=== PATIENT | female | born 2000 | race Caucasian/White ===

== ENCOUNTER 2018-06-13 00:28 | Emergency (ER) | payer OTHER ==
[~2018-06-13] VITALS: Ht 162.6 cm; Wt 54.4 kg
[2018-06-13] MEDS ORDERED: LACTATED RINGERS 1,000 ML IV ONE ×3 (03:50→04:32)
[2018-06-13] MEDS ORDERED: ONDANSETRON 4 MG/2 ML (SDV) Z0FRAN ONE (03:51)
[2018-06-13 03:58] VITALS: BP_SYST 107; BP_SYST 108; BP_SYST 112; BP_DIAS 64; BP_DIAS 66
[2018-06-13 03:59] LABS: BASOPHILS % (AUTO) 0 % (0-10); EOSINOPHILS # (AUTO) 0.2 10^3/uL (0.0-0.3); EOSINOPHILS % (AUTO) 2 % (0-10); HEMATOCRIT 42 % (35-52); HEMOGLOBIN 14.7 G/DL (11.5-16.0); LYMPHOCYTES % (AUTO) 35 % (12-44); MEAN CORPUSCULAR HEMOGLOBIN 30 PG (25-34); MEAN CORPUSCULAR HGB CONC 35 G/DL (32-36); MEAN CORPUSCULAR VOLUME 86 FL (80-99); MEAN PLATELET VOLUME 9.9 FL (7.4-10.4); MONOCYTES # (AUTO) 0.5 X 10^3 (0.0-1.0); MONOCYTES % (AUTO) 6 % (0-12); NEUTROPHILS # (AUTO) 4.8 X 10^3 (1.8-7.8); NEUTROPHILS % (AUTO) 56 % (42-75); PLATELET COUNT 284 10^3/uL (130-400); RED BLOOD COUNT 4.88 10^6/uL (4.35-5.85); RED CELL DISTRIBUTION WIDTH 12.7 % (10.0-14.5); WHITE BLOOD COUNT 8.5 10^3/uL (4.3-11.0)
[2018-06-13] MEDS ORDERED: ONDANSETRON 4 MG/2 ML (SDV) Z0FRAN IVP ONE (04:00)
[2018-06-13 04:18] LABS: ALANINE AMINOTRANSFERASE 21 U/L (0-55); ALBUMIN 4.6 GM/DL (3.2-4.5); ALKALINE PHOSPHATASE 88 U/L (40-136); AMYLASE 50 U/L (25-125); BILIRUBIN,TOTAL 1.4 MG/DL (0.1-1.0); BUN/CREATININE RATIO 9; CALCIUM 9.5 MG/DL (8.5-10.1); CARBON DIOXIDE 22 MMOL/L (21-32); CHLORIDE 106 MMOL/L (98-107); CREATININE SERUM 0.74 MG/DL (0.60-1.30); GFR ESTIMATED > 60; GLUCOSE 91 MG/DL (70-105); LIPASE 30 U/L (8-78); POTASSIUM 3.7 MMOL/L (3.6-5.0); SODIUM 140 MMOL/L (135-145); TOTAL PROTEIN 7.5 GM/DL (6.4-8.2)
[2018-06-13 04:23] LABS: BILIRUBIN,URINE NEGATIVE (NEGATIVE); CLARITY,URINE SLIGHTLY CLOUDY; COLOR,URINE YELLOW; GLUCOSE, URINE (UA) NEGATIVE (NEGATIVE); KETONES,URINE 2+ (NEGATIVE); LEUKOCYTE ESTERASE ,URINE NEGATIVE (NEGATIVE); NITRITE,URINE NEGATIVE (NEGATIVE); PH,URINE 7 (5-9); PROTEIN,URINE NEGATIVE (NEGATIVE); UROBILINOGEN,URINE NORMAL (NORMAL)
[2018-06-13] MEDS ORDERED: KETOROLAC 30 MG/ML VIAL IVP STA (04:32)
[2018-06-13 04:37] LABS: AMORPHOUS SEDIMENT,UR MOD AMOR PHOSPHATE /LPF; BACTERIA,URINE TRACE /HPF; SQUAMOUS EPITHELIAL CELL,UR 0-2 /HPF
[2018-06-13] MEDS ORDERED: CYCL10TA9 PO (05:38)
[2018-06-13] MEDS ORDERED: ONDN4T PO (05:38)
[2018-06-13] MEDS ORDERED: KETO10TA PO (05:38)
--- NOTE | 2018-06-13 05:38 | ED Abdominal Pain ---
General Chief Complaint: Abdominal/GI Problems Stated Complaint: N,D Nursing Triage Note: PT VEBALIZED CONSTANT ABDOMINAL AND R FLANK PAIN THAT BEGAN THIS AM WITH NAUSEA. PT VERBALIZED TWO LOOSE STOOLS EARLIER THIS AFTERNOON. Sepsis Screen: No Definite Risk Source of Information: Patient History of Present Illness Date Seen by Provider: Jun 13, 2018 Time Seen by Provider: 03:45 Initial Comments PT ARRIVES VIA POV FROM HOME C/O RLQ PAIN RADIATING TO RIGHT FLANK SINCE 1000 AM TODAY PAIN IS CONSTANT BUT WAXES AND WANES IN INTENSITY. RATES PAIN 8/10 PAIN IS WORSE WITH BENDING AT WAIST, STANDING UP OR SITTING DOWN + NAUSEA, NO VOMITING + DIARRHEA X 2 NO FEVER/SWEATS/CHILLS NO PROBLEMS URINATING NO HISTORY OF SIMILAR LMP 05/26/18--1 WEEK LATE, NO CONTROL PCP: NONE--JUST MOVED HERE FROM [place] Allergies and Home Medications Allergies Coded Allergies: Penicillins (Verified Allergy, Unknown, 06/13/18) Home Medications Cyclobenzaprine HCl 10 Mg Tablet, 10 MG PO Q8H Prescribed by: ARON LANZA on 06/13/18 0538 Ketorolac Tromethamine 10 Mg Tablet, 10 MG PO Q6H Prescribed by: ARON LANZA on 06/13/18 0538 Ondansetron HCl 4 Mg Tab, 4 MG PO Q4H Prescribed by: ARON LANZA on 06/13/18 0538 Patient Home Medication List Home Medication List Reviewed: Yes Review of Systems Review of Systems Constitutional: no symptoms reported Respiratory: No Symptoms Reported Cardiovascular: No Symptoms Reported Gastrointestinal: See HPI, Abdominal Pain, Diarrhea, Nausea; Denies Vomiting Genitourinary: See HPI, Flank Pain Musculoskeletal: see HPI, back pain Skin: no symptoms reported Psychiatric/Neurological: No Symptoms Reported Endocrine: No Symptoms Reported Past Mzunjva-Atmgtj-Ocbwbf Hx Patient Social History Alcohol Use: Denies Use Recreational Drug Use: No Smoking Status: Never a Smoker Recent Foreign Travel: No Contact w/Someone Who Travel: No Recent Infectious Disease Expo: No Recent Hopitalizations: No Physical Abuse: No Sexual Abuse: No Mistreated: No Fear: No Immunizations Up To Date PED Vaccines UTD: Yes Seasonal Allergies Seasonal Allergies: No Past Medical History Surgeries: Yes (MULTIPLE SETS OF BMT'S) Ear Surgery Respiratory: No Cardiac: No Neurological: No : No Last Menstrual Period: May 26, 2018 Reproductive Disorders: No Female Reproductive Disorders: Denies Genitourinary: No Gastrointestinal: No Musculoskeletal: No Endocrine: No HEENT: Yes (SEVERAL SETS OF BMT'S ) Chronic Ear Infection Cancer: No Psychosocial: No Integumentary: No Blood Disorders: No Physical Exam Vital Signs Vital Signs - First Documented 06/13/18 03:33 Temp 98.1 Pulse 85 Resp 20 B/P (MAP) 115/91 (99) Pulse Ox 100 O2 Delivery Room Air Capillary Refill : Less Than 3 Seconds Height/Weight/BMI Height: 5'4.00" Weight: 120lbs. oz. 54.052010qz; BMI Method:Stated General Appearance: WD/WN, no apparent distress, other (WALKS UPRIGHT ; SMILING ) Respiratory: normal breath sounds, no respiratory distress, no accessory muscle use Cardiovascular: regular rate, rhythm, no murmur Gastrointestinal: normal bowel sounds, soft, no organomegaly, no pulsatile mass ; No distended, No guarding, No rebound; tenderness (DIFFUSE RIGHT SIDED ABDOMINAL TENDERNESS, WITH MILD RIGHT FLANK TENDERNESS. MOST TENDER IN RLQ); No hernia, No mass Extremities: normal inspection Back: CVA tenderness (R) Neurologic/Psychiatric: brazer repair and salvage II-XII nml as tested, no motor/sensory deficits, alert, normal mood/affect, oriented x 3 Skin: normal color, warm/dry; No rash Progress/Results/Core Measures Results/Orders Lab Results Laboratory Tests Test 06/13/18 03:43 06/13/18 04:17 Range/Units White Blood Count 8.5 4.3-11.0 10^3/uL Red Blood Count 4.88 4.35-5.85 10^6/uL Hemoglobin 14.7 11.5-16.0 G/DL Hematocrit 42 35-52 % Mean Corpuscular Volume 86 80-99 FL Mean Corpuscular Hemoglobin 30 25-34 PG Mean Corpuscular Hemoglobin Concent 35 32-36 G/DL Red Cell Distribution Width 12.7 10.0-14.5 % Platelet Count 284 130-400 10^3/uL Mean Platelet Volume 9.9 7.4-10.4 FL Neutrophils (%) (Auto) 56 42-75 % Lymphocytes (%) (Auto) 35 12-44 % Monocytes (%) (Auto) 6 0-12 % Eosinophils (%) (Auto) 2 0-10 % Basophils (%) (Auto) 0 0-10 % Neutrophils # (Auto) 4.8 1.8-7.8 X 10^3 Lymphocytes # (Auto) 3.0 1.0-4.0 X 10^3 Monocytes # (Auto) 0.5 0.0-1.0 X 10^3 Eosinophils # (Auto) 0.2 0.0-0.3 10^3/uL Basophils # (Auto) 0.0 0.0-0.1 10^3/uL Sodium Level 140 135-145 MMOL/L Potassium Level 3.7 3.6-5.0 MMOL/L Chloride Level 106 98-107 MMOL/L Carbon Dioxide Level 22 21-32 MMOL/L Anion Gap 12 5-14 MMOL/L Blood Urea Nitrogen 7 7-18 MG/DL Creatinine 0.74 0.60-1.30 MG/DL Estimat Glomerular Filtration Rate > 60 BUN/Creatinine Ratio 9 Glucose Level 91 70-105 MG/DL Calcium Level 9.5 8.5-10.1 MG/DL Corrected Calcium 8.5-10.1 MG/DL Total Bilirubin 1.4 H 0.1-1.0 MG/DL Aspartate Amino Transf (AST/SGOT) 21 5-34 U/L Alanine Aminotransferase (ALT/SGPT) 21 0-55 U/L Alkaline Phosphatase 88 40-136 U/L Total Protein 7.5 6.4-8.2 GM/DL Albumin 4.6 H 3.2-4.5 GM/DL Amylase Level 50 25-125 U/L Lipase 30 8-78 U/L Serum Test, Qualitative NEGATIVE NEGATIVE Urine Color YELLOW Urine Clarity SLIGHTLY CLOUDY Urine pH 7 5-9 Urine Specific [place] 1.015 L 1.016-1.022 Urine Protein NEGATIVE NEGATIVE Urine Glucose (UA) NEGATIVE NEGATIVE Urine Ketones 2+ H NEGATIVE Urine Nitrite NEGATIVE NEGATIVE Urine Bilirubin NEGATIVE NEGATIVE Urine Urobilinogen NORMAL NORMAL MG/DL Urine Leukocyte Esterase NEGATIVE NEGATIVE Urine RBC (Auto) NEGATIVE NEGATIVE Urine RBC NONE /HPF Urine WBC NONE /HPF Urine Squamous Epithelial Cells 0-2 /HPF Urine Crystals PRESENT H /LPF Urine Amorphous Sediment MOD STIVEN PHOSPHATE H /LPF Urine Bacteria TRACE /HPF Urine Casts NONE /LPF Urine Mucus MODERATE H /LPF Urine Culture Indicated NO My Orders Orders - POOL,ARON K DO Saline Lock/Iv-Start (06/13/18 03:42) Urine Bedside (06/13/18 03:42) Orthostatic Vital Signs (Adult (06/13/18 03:42) Amylase (06/13/18 03:42) Cbc With Automated Diff (06/13/18 03:42) Comprehensive Metabolic Panel (06/13/18 03:42) Lipase (06/13/18 03:42) Ua Culture If Indicated (06/13/18 03:42) Saline Lock/Iv-Start (06/13/18 03:50) Lactated Ringers (Lr 1000 Ml Iv Solution (06/13/18 03:50) Ondansetron Injection (Zofran Injectio (06/13/18 04:00) Ondansetron Injection (Zofran Injectio (06/13/18 03:51) Lactated Ringers (Lr 1000 Ml Iv Solution (06/13/18 03:51) Hcg,Qualitative Serum (06/13/18 04:23) Ct Abd/Pelvis Wo(Kidney Stone) (06/13/18 04:32) Acute Abd Series (06/13/18 04:32) Saline Lock/Iv-Start (06/13/18 04:32) Lactated Ringers (Lr 1000 Ml Iv Solution (06/13/18 04:32) Ketorolac Injection (Toradol Injection) (06/13/18 04:32) Medications Given in ED Current Medications Medications Dose Ordered Sig/Lisa Route Start Time Stop Time Status Last Admin Dose Admin Lactated Ringer's 1,000 ml @ 0 mls/hr Q0M ONCE IV 06/13/18 03:50 06/13/18 03:53 DC 06/13/18 03:59 1,000 MLS/HR Lactated Ringer's 1,000 ml @ 0 mls/hr Q0M ONCE IV 06/13/18 04:32 06/13/18 04:34 DC 06/13/18 05:06 1,000 MLS/HR Ondansetron HCl 4 mg ONCE ONCE IVP 06/13/18 04:00 06/13/18 04:01 DC 06/13/18 03:58 4 MG Vital Signs/I&O 06/13/18 06/13/18 06/13/18 03:33 03:58 06:03 Temp 98.1 98.2 Pulse 85 71 75 61 81 Resp 20 18 B/P (MAP) 115/91 (99) 112/64 (80) 98/78 (85) 107/66 (80) 108/64 (79) Pulse Ox 100 100 O2 Delivery Room Air Room Air Blood Pressure Mean: 79 Urine -Bedside: Negative Progress Progress Note : Progress Note SYMPTOMS RESOLVED AT DISMISSAL Diagnostic Imaging Comments ACUTE ABDOMEN XRAYS--ITALO CUTE PROCESS, PENDING RADIOLOGIST REVIEW CT ABDOMEN/PELVIS--3.1 CM RIGHT ADNEXAL FLUID COLLECTION C/W HEMORRHAGIC OVARIAN CYST. PER [facility] VIA FAX @ [phone] Reviewed: Reviewed by Me Departure Impression Primary Impression: Hemorrhagic cyst of right ovary Disposition: HOME, SELF-CARE Condition: Improved Departure-Patient Inst. Referrals: NO,LOCAL PHYSICIAN (PCP/Family) Primary Care Physician Patient Instructions: Ovarian Cyst (DC) Add. Discharge Instructions: HOME, REST LOTS OF CLEAR LIQUIDS--WATER, BROTH, JELLO, GATORADE FOLLOW UP WITH DR OF CHOICE IN 3-4 DAYS FOR FURTHER CARE RETURN TO ER IF WORSE All discharge instructions reviewed with patient and/or family. Voiced understanding. Scripts Ketorolac Tromethamine (Ketorolac Tromethamine) 10 Mg Tablet 10 MG PO Q6H for Pain, #15 TAB Prov: ARON LANZA DO 06/13/18 Cyclobenzaprine HCl (Cyclobenzaprine HCl) 10 Mg Tablet 10 MG PO Q8H, #15 TAB Prov: ARON LANZA DO 06/13/18 Ondansetron HCl (Zofran) 4 Mg Tab 4 MG PO Q4H for Nausea/Vomiting, #10 TAB Prov: ARON LANZA DO 06/13/18 Work/School Note: Local Medical Staff Listing ARON LANZA DO Jun 13, 2018 05:38
[2018-06-13 06:03] VITALS: BP 98/78
--- NOTE | 2018-06-13 08:22 | Diagnostic Imaging Report ---
INDICATION: Abdominal pain. Abdominal series performed with frontal chest radiograph and supine upright abdominal films. Frontal chest view shows no focal infiltrate and heart is normal in size. There is no pleural fluid. Upright view shows no evidence of free air. Abdominal bowel gas pattern is unremarkable. There is prominent stool in the colon. IMPRESSION: Unremarkable abdominal series. Dictated by: Dictated on workstation # [id number]
--- NOTE | 2018-06-13 09:25 | Diagnostic Imaging Report ---
PROCEDURE: CT urinary tract, rule out kidney stone. TECHNIQUE: Multiple contiguous axial images were obtained through the abdomen and pelvis without the use of intravenous contrast. INDICATION: Right-sided pain. FINDINGS: The lung bases are clear. The liver and gallbladder are unremarkable. No biliary duct dilatation is seen. There is some mild fullness in the region of the pancreatic head. However, this may be secondary to surrounding structures such as the IVC and duodenum. Even so, postcontrast imaging would be useful. The spleen is unremarkable. There is no adrenal mass. The kidneys are unremarkable. No calculi or hydronephrosis is detected. The aorta is not aneurysmal. Small and large bowel loops are nonobstructed. The appendix is visualized in the right lower quadrant and unremarkable. There is no ascites. In the pelvis, there is a cystic mass in the right adnexa containing a fluid/fluid level. This measures 4.1 cm AP diameter and is most consistent with a hemorrhagic ovarian cyst. No other abnormalities are seen. IMPRESSION: 1. No evidence of urinary tract calculi or hydronephrosis. 2. No CT evidence of acute appendicitis. 3. A 4.1 cm right adnexal cyst, most consistent with hemorrhagic ovarian cyst. 4. There is mild soft tissue fullness in the region of the pancreatic head, as described above. Repeat CT utilizing IV and oral contrast would be useful for further characterization. Dictated by: Dictated on workstation # [id number]
== END 2018-06-13 06:03 | disposition home or self-care (01) ==
LOC: ER 00:33
DX: N83.201 Unspecified ovarian cyst, right side (principal); Z88.0 Allergy status to penicillin
CPT/HCPCS: 36415; 74022; 74176; 80053; 81000; 82150; 83690; 84703; 85025; 96361; 96374; 96375

== ENCOUNTER 2022-09-23 20:49 | Emergency (ER) | payer SELFPAY ==
[~2022-09-23] VITALS: Ht 162.5 cm; Wt 58.9 kg
[~2022-09-23 20:49] MED LIST: CYCL10TA25 PO; KETO10TA PO; ONDN4T PO
[2022-09-23] MEDS ORDERED: TETANUS,DIPTH,PERTUSS P/F (BOOSTRIX) 0.5 ML VIAL IM ONE (21:00)
--- NOTE | 2022-09-23 21:00 | ED Integumentary General ---
General Chief Complaint: Upper Extremity Stated Complaint: LEFT THUMB/PALM INJURY Source: patient Exam Limitations: no limitations History of Present Illness Date Seen by Provider: Sep 23, 2022 Time Seen by Provider: 20:51 Initial Comments 22-year-old female presents for left hand injury. She was at work and stabbed herself with a knife used to open well on a wine bottle. No other injuries. The wound is in the webspace between her thumb and index finger on the left hand. No weakness numbness or tingling. Does not know when her last tetanus shot was but has not had one since high school. All other systems reviewed and negative except documented per HPI. Voice recognition software was used to help create this chart Allergies and Home Medications Allergies Coded Allergies: Penicillins (Verified Allergy, Unknown, 06/13/18) Patient Home Medication List Home Medication List Reviewed: Yes Cyclobenzaprine HCl (Cyclobenzaprine HCl) 10 Mg Tablet, 10 MG PO Q8H Prescribed by: ARON LANZA on 06/13/18 0538 Ketorolac Tromethamine (Ketorolac Tromethamine) 10 Mg Tablet, 10 MG PO Q6H Prescribed by: ARON LANZA on 06/13/18 0538 Ondansetron HCl (Zofran) 4 Mg Tab, 4 MG PO Q4H Prescribed by: ARON LANZA on 06/13/18 0538 Review of Systems Review of Systems Constitutional: see HPI Past Sumpmis-Mwnblq-Bciilf Hx Patient Social History Tobacco Use?: No Use of E-Cig and/or Vaping dev: No Substance use?: No Alcohol Use?: No Immunizations Up To Date PED Vaccines UTD: Yes Seasonal Allergies Seasonal Allergies: No Past Medical History Surgeries: Yes (MULTIPLE SETS OF BMT'S) Ear Surgery Respiratory: No Cardiac: No Neurological: No Reproductive Disorders: No Female Reproductive Disorders: Denies Genitourinary: No Gastrointestinal: No Musculoskeletal: No Endocrine: No HEENT: Yes (SEVERAL SETS OF BMT'S ) Chronic Ear Infection Cancer: No Psychosocial: No Integumentary: No Blood Disorders: No Physical Exam Vital Signs Capillary Refill : General Appearance: WD/WN, no apparent distress Cardiovascular: regular rate, rhythm, no murmur Respiratory: chest non-tender, lungs clear, normal breath sounds Extremities: other (Small puncture type wound to the webspace between the thumb and the index finger of the left hand, extensor surface. Neurovascular and sensory intact. Normal tendon function throughout.) Skin Problem Character: other (Described above) Progress/Results/Core Measures Results/Orders My Orders Orders - GEETHA HEREDIA DO Dipht,Pertuss(Acell),Tet Adult ([facility] (09/23/22 21:00) Departure Communication (Admissions) Patient is hemodynamically stable. Wound does not require sutures, quite small. Its not very deep at all. We will go ahead and treat with local wound care alone. She is given work instructions and discharged in stable condition. Impression Primary Impression: Laceration of left hand Qualified Codes: S61.412A - Laceration without foreign body of left hand, initial encounter Disposition: HOME, SELF-CARE Condition: Stable Departure-Patient Inst. Referrals: NO,LOCAL PHYSICIAN (PCP/Family) Primary Care Physician Patient Instructions: Wound Care ED Add. Discharge Instructions: Keep the wound clean. Do not submerge in water like lakes pools hot tubs or dish sinks. Keep it covered if you have to wash dishes or work with water at work. Shower as normal. Return to the emergency department for any redness t hat spreading or drainage that looks like pus. This will heal on its own without any further interventions. All discharge instructions reviewed with patient and/or family. Voiced understanding. GEETHA HEREDIA DO Sep 23, 2022 21:00
[2022-09-23 21:13] VITALS: BP 102/54
== END 2022-09-23 21:13 | disposition home or self-care (01) ==
LOC: EDUNIT# 20:49 → ER 20:52
DX: S61.412A Laceration without foreign body of left hand, initial encounter (principal); S61.432A Puncture wound without foreign body of left hand, initial encounter; Z23 Encounter for immunization; W26.0XXA Contact with knife, initial encounter; Y92.59 Other trade areas as the place of occurrence of the external cause; Y99.0 Civilian activity done for income or pay
CPT/HCPCS: 90715; 99284